=== PATIENT | male | born 1970 | race Caucasian/White ===

== ENCOUNTER → 2024-01-25 13:21 | Outpatient (BNVA) | payer OTHER, SELFPAY | PROVIDERS: PCP Nurse Practitioner Family; Visit Provider Nurse Practitioner Family | DX: Z12.5 Encounter for screening for malignant neoplasm of prostate (principal); Z13.6 Encounter for screening for cardiovascular disorders | CPT/HCPCS: 80053; 80061; 85025; G0103 ==

== ENCOUNTER → 2024-02-01 08:25 | Outpatient (BNVA) | payer OTHER, SELFPAY | PROVIDERS: PCP Nurse Practitioner Family; Visit Provider Nurse Practitioner Family | DX: R73.9 Hyperglycemia, unspecified | CPT/HCPCS: 83036 ==

== ENCOUNTER → 2024-07-17 14:21 | Outpatient (BNVA) | payer OTHER, SELFPAY | PROVIDERS: PCP Nurse Practitioner Family; Visit Provider Registered Nurse Neonatal Intensive Care | DX: M25.561 Pain in right knee (principal) | CPT/HCPCS: 73562 ==

== ENCOUNTER 2024-08-06 09:28 | Emergency (ER) | payer OTHER, SELFPAY ==
[2024-08-06 09:49] VITALS: BP 149/84; PULSE 69; RESP 18; TEMP 36.7; O2SAT 97; BMI 37.6
--- NOTE | 2024-08-06 09:59 | USCV_ITS ---
Alex Ford Age: 54 Gender: M : 1970 Exam Date: 08/06/2024 10:10 Ordering Phys: Pal Fish MD Technologist: CT Exam Location: [facility] [place] Indication: PROCEDURES: Venous duplex imaging was performed in only the right lower extremity. On the right side, the common femoral, superficial femoral, profunda femoral, popliteal, posterior tibial, greater saphenous veins and the peroneal trunk were identified and interrogated in the standard fashion. FINDINGS: Normal 2-D Doppler and augmentation and compressibility throughout the lower extremity venous structures. Additional imaging through the proximal calf veins also reveals no thrombus. Limited evaluation of the greater saphenous vein is patent with no thrombus. CONCLUSIONS No DVT right lower extremity. Dr. Sara Joya DO (Electronically Signed) Final Date: 06 August 2024 14:24 S
--- NOTE | 2024-08-06 11:23 | ED_ITS ---
HPI - Extremity Problem 2 General: Chief complaint: Extremity Problem,Nontraumatic Stated complaint: Righ leg swollen Time Seen by Provider: 08/06/24 11:23 History of Present Illness: 54-year-old male presents emergency room right leg pain irritation discomfort and swelling. States began a couple weeks ago was at work felt a popping sensation lateral portion of the popliteal fossa he had some difficult time walking after that has been wearing a knee brace. Now has developed some swelling some redness in the anterior lower leg that began today. Is warm to the touch. He has been able to bear weight and walk on it. He has not had any chest pain or shortness of breath Associated symptoms: Deny chest pain, fever(s) or rash Related Data Previous Rx's Medication Instructions Recorded diclofenac sodium 75 mg 75 mg PO BID PRN pain #60 tabs 08/01/24 tablet,delayed release tizanidine 4 mg tablet 4 mg PO Q8H PRN muscle spasticity 08/01/24 #30 tabs sulfamethoxazole 800 1 tab PO DAILY 7 days #14 tabs 08/06/24 mg-trimethoprim 160 mg tablet (Bactrim DS) Allergies Allergy/AdvReac Type Severity Reaction Status Date / Time No Known Allergies Allergy Verified 07/17/24 13:57 Review of Systems 2 Const: Denies: fever(s) or chills Card: Denies: chest pain Resp: Denies: dyspnea GI: Denies: abdominal pain : Denies: dysuria, urinary frequency or urinary urgency Musc: Denies: neck pain or back pain Skin/Breast: Denies: rash PFSH ED 2 PFSH: Medical History No pertinent past medical history Surgical History No pertinent past surgical history Social History Smoking and tobacco/nicotine status: never used tobacco/nicotine Second hand smoke exposure: No Alcohol intake: never Substance/Drug Use: never Household members: spouse Marital status: service: No Current occupational status: employed Current occupational exposures/hazards: No Current gender identity: Male Special cynthia needs: No Physical Exam 2 Const: COMMON NORMALS: no acute distress GENERAL APPEARANCE: cooperative and comfortable ORIENTATION/CONSCIOUSNESS: Yes awake, Yes oriented to person, Yes oriented to place and Yes oriented to time HENMT: COMMON NORMALS: normocephalic, atraumatic and hearing grossly normal bilaterally HEAD & SCALP: normocephalic and atraumatic Resp: COMMON NORMALS: normal respiratory effort, No retractions, No use of accessory muscles and clear to auscultation bilaterally AUSCULTATION: clear to auscultation bilaterally Cardio: COMMON NORMALS: regular rate, regular rhythm and No murmurs present (Cardio) RATE: regular rate RHYTHM: regular rhythm GI: COMMON NORMALS: Soft to palpation and No hepatosplenomegaly present A USCULTATION: Yes normoactive bowel sounds PALPATION: Yes Soft to palpation, No Tenderness to palpation present (GI), No Guarding due to palpation present (GI) and Yes No hepatosplenomegaly present Extremity: COMMON NORMALS: normal to inspection, capillary refill normal and no calf tenderness OTHER: Examination of the right knee shows some moderate swelling no joint effusion. Mild redness induration of the anterior tibia on the right leg. Neuro: SENSORIUM/ORIENTATION: Yes oriented to person, Yes oriented to place and Yes oriented to time Skin: COMMON NORMALS: no rashes or lesions noted GENERAL SKIN EXAM: no rashes or lesions noted Course 2 Vital Signs: Vital signs: Vital Signs Temperature 98.1 F 08/06/24 09:49 Pulse Rate 60 08/06/24 14:01 Respiratory Rate 16 08/06/24 14:01 Blood Pressure 100/81 08/06/24 14:01 Pulse Oximetry 99 08/06/24 14:01 Oxygen Delivery Me thod Room Air 08/06/24 13:36 MDM - Extremity (Nontraumatic) Medical Decision Making Signs of very mild cellulitis in the right anterior tibia no DVT on ultrasound. Started on Bactrim. Elevate as tolerated. If not improving recheck with primary care Medical Records I reviewed the patient's medical records. Lab Data I reviewed the patient's lab results. 08/06/24 11:47 08/06/24 11:47 Laboratory Results WBC 5.49 10^3/uL (3.29-11.43) 08/06/24 11:47 RBC 4.77 10^6/uL (3.85-5.65) 08/06/24 11:47 Hgb 14.40 g/dL (11.27-16.99) 08/06/24 11:47 Hct 43.1 % (37-53) 08/06/24 11:47 MCV 90.4 fl (82-101) 08/06/24 11:47 MCH 30.2 pg (27-33) 08/06/24 11:47 MCHC 33.4 g/dL (30-55) 08/06/24 11:47 RDW 12.8 % (12.1-15.1) 08/06/24 11:47 Plt Count 209 10^3/cmm (157-399) 08/06/24 11:47 MPV 10.7 fL (7.4-10.4) H 08/06/24 11:47 Neut % (Auto) 57.0 % 08/06/24 11:47 Lymph % (Auto) 24.2 % 08/06/24 11:47 Sandoval % (Auto) 15.3 % 08/06/24 11:47 Eos % (Auto) 2.2 % 08/06/24 11:47 Baso % (Auto) 0.9 % 08/06/24 11:47 Neut # (Auto) 3.13 10^3/uL (1.8-7.7) 08/06/24 11:47 Lymph # (Auto) 1.3 10^3/uL (0.8-4.8) 08/06/24 11:47 Sandoval # (Auto) 0.8 10^3/uL (0.2-0.9) 08/06/24 11:47 Eos # (Auto) 0.1 10^3/uL (0.0-0.8) 08/06/24 11:47 Baso # (Auto) 0.1 10^3/uL (0.0-0.1) 08/06/24 11:47 Nucleated RBC % (auto) 0 % 08/06/24 11:47 Nucleated RBCs # 0.0 /100WBC 08/06/24 11:47 ESR 4 mm/hr (0-10) 08/06/24 11:47 Sodium 142 mmol/L (136-145) 08/06/24 11:47 Potassium 4.1 mmol/L (3.5-5.1) 08/06/24 11:47 Chloride 105 mmol/L (98-107) 08/06/24 11:47 Carbon Dioxide 29 mmol/L (22-29) 08/06/24 11:47 Anion Gap 12.1 (5-19) 08/06/24 11:47 BUN 12 mg/dL (6-20) 08/06/24 11:47 Creatinine 0.8 mg/dL (0.7-1.2) 08/06/24 11:47 GFR Calculation 100.7 mL/min (90-130) 08/06/24 11:47 Glucose 118 mg/dL (65-115) H 08/06/24 11:47 Calculated Osmolality 295 mOsm/kg (285-295) 08/06/24 11:47 Calcium 8.3 mg/dL (8.5-10.5) L 08/06/24 11:47 Total Bilirubin 0.4 mg/dL (0.15-1.2) 08/06/24 11:47 AST 36 U/L (0-40) 08/06/24 11:47 ALT 42 U/L (0-41) H 08/06/24 11:47 Alkaline Phosphatase 71 U/L (40-130) 08/06/24 11:47 Total Protein 6.9 g/dL (6.6-8.7) 08/06/24 11:47 Albumin 4.2 g/dL (3.5-5.2) 08/06/24 11:47 Globulin 2.7 g/dL (1.3-4.6) 08/06/24 11:47 All radiology interpretation(s) finalized by discharge Discharge Plan Discharge Patient Disposition: Home Clinical Impression: Cellulitis and abscess of left leg, Knee sprain Condition: Stable Prescriptions: New sulfamethoxazole-trimethoprim [Bactrim DS] 800-160 mg tablet 1 tab PO DAILY 7 Days Qty: 14 0RF No Action diclofenac sodium 75 mg tablet,delayed release (DR/EC) 75 mg PO BID PRN (Reason: pain) Qty: 60 2RF Rx Instructions: no nsaids with this tizanidine 4 mg tablet 4 mg PO Q8H PRN (Reason: muscle spasticity) Qty: 30 0RF Discharge Orders: Discharge ED (Routine); Ordered 08/06/24 Ordered By: Nicholas Esteves Referrals: Esperanza Grossman, OSTRICH FARMER [Primary Care Provider] - Discharge Diet: Usual diet Discharge Activity: Increase activity as tolerated Patient Instructions: Opioid Safety, Pain Management Activity Restrictions/Additional Instructions: Thank you for choosing [facility] for your healthcare needs today. It is very important that you follow up as instructed or that you return to the Emergency Department should you have concerns or if your condition changes or worsens in any way. You are seen today with complaints of swelling in the right leg. Ultrasound did not show any blood clots in the leg. There is some mild redness suspicious for a cellulitis we will put you on some oral antibiotics for this. You should follow-up with your primary care doctor if the redness is not improving. Additionally we will make an appointment for you to see orthopedics regarding the knee pain. Coding Level of Care Code ED Transition Lead for Allison Gaffney
[2024-08-06 11:55] LABS: Basophils # 0.1 10^3/uL (0.0-0.1); Basophils % 0.9 %; Eosinophils # 0.1 10^3/uL (0.0-0.8); Eosinophils % 2.2 %; Hematocrit 43.1 % (37-53); Lymphocytes # 1.3 10^3/uL (0.8-4.8); Lymphocytes % 24.2 %; Mean Corpuscular HGB Conc 33.4 g/dL (30-55); Mean Corpuscular Hemoglobin 30.2 pg (27-33); Mean Corpuscular Volume 90.4 fl (82-101); Mean Platelet Volume 10.7 fL (7.4-10.4); Monocytes # 0.8 10^3/uL (0.2-0.9); Monocytes % 15.3 %; Neutrophils # 3.13 10^3/uL (1.8-7.7); Nucleated Red Blood Cells % 0 %; Platelet Count 209 10^3/cmm (157-399); Red Blood Count 4.77 10^6/uL (3.85-5.65); Red Cell Distribution Width 12.8 % (12.1-15.1); White Blood Count 5.49 10^3/uL (3.29-11.43)
[2024-08-06 12:00] LABS: Erythrocyte Sedimentation Rate 4 mm/hr (0-10)
[2024-08-06 12:07] VITALS: BP 133/79; PULSE 59; RESP 16; O2SAT 97
[2024-08-06 12:13] LABS: Alanine Aminotransferase 42 U/L (0-41); Albumin Level 4.2 g/dL (3.5-5.2); Alkaline Phosphatase 71 U/L (40-130); Anion Gap 12.1 (5-19); Aspartate Amino Transferase 36 U/L (0-40); Blood Urea Nitrogen 12 mg/dL (6-20); Calcium 8.3 mg/dL (8.5-10.5); Carbon Dioxide 29 mmol/L (22-29); Chloride 105 mmol/L (98-107); Creatinine Clr Calc Pharmacy 140.5981; Globulin 2.7 g/dL (1.3-4.6); Glomerular Filtration Rate 100.7 mL/min (90-130); Glucose 118 mg/dL (65-115); Osmolality Calculated 295 mOsm/kg (285-295); Potassium 4.1 mmol/L (3.5-5.1); Sodium 142 mmol/L (136-145); Total Bilirubin 0.4 mg/dL (0.15-1.2); Total Protein 6.9 g/dL (6.6-8.7)
[2024-08-06 12:56] VITALS: BP 123/76; PULSE 54; RESP 16; O2SAT 98
[2024-08-06 13:36] VITALS: BP 128/84; PULSE 62; RESP 14; O2SAT 99
[2024-08-06 14:01] VITALS: BP 100/81; PULSE 60; RESP 16; O2SAT 99
--- NOTE | 2024-08-07 07:38 | DCPLANNER ---
messaged ortho for er f/u
== END 2024-08-06 13:52 | disposition home or self-care (01) ==
PROVIDERS: Emergency Medicine; Emergency Provider Family Medicine; PCP Nurse Practitioner Family
DX: L03.115 Cellulitis of right lower limb (principal); L02.415 Cutaneous abscess of right lower limb; S83.91XA Sprain of unspecified site of right knee, initial encounter; X58.XXXA Exposure to other specified factors, initial encounter
CPT/HCPCS: 36415; 80053; 85025; 85651; 93971; 99284

== ENCOUNTER → 2024-08-20 09:23 | Outpatient (BNVA) | payer OTHER, SELFPAY | PROVIDERS: PCP Nurse Practitioner Family; Visit Provider Nurse Practitioner | DX: M25.561 Pain in right knee (principal); M23.51 Chronic instability of knee, right knee; M17.11 Unilateral primary osteoarthritis, right knee | CPT/HCPCS: 73560; 73565 ==

== ENCOUNTER 2024-08-20 11:56 | Outpatient (CLI) | payer OTHER, SELFPAY | END 2024-08-20 11:57 | disposition home or self-care (01) | LOC: SPT 11:57 | PROVIDERS: PCP Nurse Practitioner Family; Visit Provider Nurse Practitioner | DX: Z46.89 Encounter for fitting and adjustment of other specified devices (principal); M25.361 Other instability, right knee | CPT/HCPCS: L1812 ==

== ENCOUNTER 2024-08-29 06:00 | Outpatient (RCR) | payer OTHER, SELFPAY | END 2024-09-20 23:59 | disposition home or self-care (01) | LOC: TPT 06:00 | PROVIDERS: PCP Nurse Practitioner Family; Visit Provider Nurse Practitioner | DX: M23.51 Chronic instability of knee, right knee (principal); M17.11 Unilateral primary osteoarthritis, right knee | CPT/HCPCS: 97110; 97161 ==

== ENCOUNTER → 2024-12-02 11:54 | Outpatient (BNVA) | payer OTHER, SELFPAY | PROVIDERS: Family Provider Nurse Practitioner Family; PCP Nurse Practitioner Family; Visit Provider Nurse Practitioner Family | DX: R50.9 Fever, unspecified (principal) | CPT/HCPCS: 87400; 87426 ==

== ENCOUNTER 2025-08-14 16:27 | Outpatient (CLI) | payer OTHER, SELFPAY ==
--- NOTE | 2025-08-14 16:45 | XRR_ITS ---
PROCEDURE INFORMATION: Exam: XR Lumbosacral Spine Exam date and time: 08/14/2025 4:50 PM Age: 55 years old Clinical indication: Fall from roof TECHNIQUE: Imaging protocol: Radiologic exam of the lumbosacral spine. Views: 2 or 3 views. COMPARISON: No relevant prior studies available. FINDINGS: Bones/joints: Normal alignment of the lumbar spine. Vertebral body heights are preserved. The L4 vertebral body demonstrates slight sclerosis of the superior endplate with slight angulation involving the superior aspect of the anterior cortex without vertebral body height loss. Lower lumbar facet arthropathy. Soft tissues: Unremarkable. XR/XR lumbar spine 2-3V* [id number] IMPRESSION: There is sclerosis involving the superior endplate of the L4 vertebral body with slight angulation involving the anterior cortex. Findings may represent chronic degenerative changes , though a compression fracture can not be fully excluded. Recommend correlation with point tenderness and CT if clinically indicated.
--- NOTE | 2025-08-14 16:45 | XRR_ITS ---
PROCEDURE INFORMATION: Exam: XR Right Foot Exam date and time: 08/14/2025 4:50 PM Age: 55 years old Clinical indication: Fall from roof TECHNIQUE: Imaging protocol: Radiologic exam of the right foot. Views: 3 or more views. COMPARISON: CR XR knees AP WB w RT lmt ORTH 08/20/2024 9:31 AM FINDINGS: Bones/joints: No acute fracture. Normal joint alignment. Degenerative changes throughout the foot and ankle. Calcaneal enthesophytes. Soft tissues: Normal. XR/XR foot RT min 3V* [id number] IMPRESSION: No acute osseous abnormality.
--- NOTE | 2025-08-14 16:45 | XRR_ITS ---
PROCEDURE INFORMATION: Exam: XR Left Foot Exam date and time: 08/14/2025 4:50 PM Age: 55 years old Clinical indication: Fall from roof TECHNIQUE: Imaging protocol: Radiologic exam of the left foot. Views: 3 or more views. COMPARISON: No relevant prior studies available. FINDINGS: Bones/joints: There is a subtle lucency along the posterior aspect of the calcaneus as well as subtle lucency involving the achilles calcaneal enthesophytes. Normal joints alignment. Osteoarthritis throughout the foot and ankle. Soft tissues: Normal. XR/XR foot LT min 3V* [id number] IMPRESSION: Subtle lucency along the posterior aspect of the calcaneus as well as the Achilles calcaneal enthesophytes. Findings may be projectional versus a nondisplaced fracture. Recommend correlation with point tenderness. If there is clinical concern for a calcaneal fracture, CT may be helpful in further delineating.
== END 2025-08-14 16:28 | disposition home or self-care (01) ==
PROVIDERS: PCP Nurse Practitioner Family
DX: M54.50 Low back pain, unspecified (principal); M77.31 Calcaneal spur, right foot; M47.816 Spondylosis without myelopathy or radiculopathy, lumbar region; M41.86 Other forms of scoliosis, lumbar region; M77.52 Other enthesopathy of left foot and ankle; M19.072 Primary osteoarthritis, left ankle and foot; M77.32 Calcaneal spur, left foot; S99.921A Unspecified injury of right foot, initial encounter; S99.922A Unspecified injury of left foot, initial encounter; W13.2XXA Fall from, out of or through roof, initial encounter
CPT/HCPCS: 72100; 73630